=== PATIENT | male | born 1960 | race Caucasian/White ===

== ENCOUNTER → 2021-08-07 10:27 | Outpatient (BNVA) | payer OTHER, SELFPAY | PROVIDERS: Family Provider Nurse Practitioner; PCP Nurse Practitioner; Visit Provider Surgery | DX: Z12.11 Encounter for screening for malignant neoplasm of colon (principal) | CPT/HCPCS: 99202 ==

== ENCOUNTER → 2021-08-19 14:25 | Outpatient (BNVA) | payer OTHER, SELFPAY | PROVIDERS: Family Provider Nurse Practitioner; PCP Nurse Practitioner; Visit Provider Surgery | DX: R22.1 Localized swelling, mass and lump, neck (principal) | CPT/HCPCS: 88307; 99213 ==

== ENCOUNTER → 2021-08-28 15:39 | Outpatient (BNVA) | payer OTHER, SELFPAY | PROVIDERS: Family Provider Nurse Practitioner; PCP Nurse Practitioner; Visit Provider Surgery | DX: Z98.890 Other specified postprocedural states (principal) | CPT/HCPCS: 99024 ==

== ENCOUNTER 2021-09-01 07:43 | Outpatient (CLI) | payer OTHER, SELFPAY ==
--- NOTE | 2021-09-01 07:54 | USCV_ITS ---
Serafin Roberts Age: 60 Gender: M : 1960 Exam Date: 09/01/2021 08:05 Ordering Phys: Maribell Bowling Technologist: MARITZA [place] [facility] [place] aaa HISTORY: Diameter (cm) AP x Transverse x Length Velocity (cm/s) Waveform Prox Aorta: 2.26 x 3.01 x 66.10 Biphasic Mid Aorta: 2.42 x 2.55 x 56.40 Biphasic Distal Aorta: 2.71 x 2.80 x 38.30 Biphasic Right Iliac Prox: 1.62 x 1.90 x 51.20 Biphasic Left Iliac Prox: 1.62 x 1.40 x 67.80 Biphasic Stent Prox Landing x x Aneurysmal Sac Max x x Lt Lat Sac Dim Rt Lat Sac Dim Stent Dist Landing x x Right Iliac Stent x x Left Iliac Stent x x Right Renal Art Left Renal Art FINDINGS: Comparison: none available. No evidence of abdominal aortic aneurysm. Ectatic abdominal aorta with evidence of atherosclerotic plaque noted. There is evidence of atherosclerotic plaque no significan stenosis in the right common iliac artery. There is evidence of atherosclerotic plaque no significan stenosis in the left common iliac artery. CONCLUSIONS No evidence of abdominal aortic aneurysm. Dr. Gina Hurtado DO (Electronically Signed) Final Date: 01 September 2021 13:18 S
== END 2021-09-01 07:44 | disposition home or self-care (01) ==
LOC: RAD 07:44
PROVIDERS: PCP Nurse Practitioner; Visit Provider Nurse Practitioner
DX: I77.811 Abdominal aortic ectasia (principal); I70.0 Atherosclerosis of aorta; Z86.79 Personal history of other diseases of the circulatory system
CPT/HCPCS: 93978

== ENCOUNTER → 2021-09-22 14:41 | Outpatient (BNVA) | payer OTHER, SELFPAY | PROVIDERS: PCP Nurse Practitioner; Visit Provider Surgery | DX: L72.0 Epidermal cyst (principal) | CPT/HCPCS: 99212 ==

== ENCOUNTER 2021-10-14 07:08 | Day surgery (SDC) | payer OTHER, SELFPAY ==
[2021-10-12 13:29] VITALS: BMI 32.8
[2021-10-14 07:17] VITALS: BP 180/92; PULSE 57; RESP 18; TEMP 36.4; O2SAT 98
--- NOTE | 2021-10-14 07:23 | W.PM.OPSUD ---
Surgery/Procedure H&P Update DATE OF PROCEDURE: October 14, 2021 DATE H&P PERFORMED: 09/22/21 PLANNED PROCEDURE: Operation Date: 10/14/21 08:30 Proposed Procedures p Colonoscopy 40988,Z12.11(Not Applicable) - Hernando Murray DO
[2021-10-14] MEDS: sodium chloride 0.9% 1,000 ML 30 ML IV (07:30)
--- NOTE | 2021-10-14 08:31 | ANES.PREANE2 ---
Pre-Anesthetic Assessment Height/Weight: Height 1.93 m Weight 122.47 kg Temp Pulse Resp BP Pulse Ox O2 Del Method 97.5 F L 57 L 18 180/92 98 10/14/21 07:17 10/14/21 07:17 10/14/21 07:17 10/14/21 07:17 10/14/21 07:17 10/14/21 07:17 Preop Diagnosis: Screening Operation Date: 10/14/21 08:30 Proposed Procedures p Colonoscopy 28134,Z12.11(Not Applicable) - Hernando Murray DO Familial anesthetic complications: None Was Beta Rishi taken within 24 hours: Yes Was Clonidine taken within 24 hours: N/A Last intake: Intake Last Liquid Date 10/13/21 Last Liquid Time 18:30 Last Solid Date 10/13/21 Last Solid Time 05:30 Social Tobacco 1 pack(s) per day 45 pack years Exam alert, oriented x 3, clear to auscultation bilaterally and regular rate & rhythm Airway Submandibular: within normal limits Cervical ROM: within normal limits Mallampati: Class II Dentition: full History/ROS No significant history except as noted and No significant complaints Pulmonary None reported CV/HEM Hypertension and Myocardial Infarction (6 stents placed one year ago) None reported Hepatic None reported GI Gastroesophageal Reflux Disease None this AM. Food specific Metabolic None reported Musc/skel None reported Neuropsych None reported Anesthetic Plan ASA status: 2 Anesthesia: Anesthesia Evaluation, General and MAC Risk of > 500 ml blood loss (7ml/kg in children): No Medications/Allergies Home Medications Medication Instructions Recorded Confirmed Last Taken Type aspirin 81 mg tablet,delayed 81 mg PO DAILY 08/07/21 10/12/21 10/11/21 History release atorvastatin 40 mg tablet 40 mg PO DAILY 08/07/21 10/12/21 10/13/21 History carvedilol 3.125 mg tablet 3.125 mg PO BID 08/07/21 10/14/21 10/14/21 05:30 History clopidogrel 75 mg tablet (Plavix) 75 mg PO DAILY 08/07/21 10/12/21 10/08/21 History losartan 50 mg tablet 50 mg PO DAILY 08/07/21 10/12/21 10/13/21 History bupropion HCl 100 mg tablet 100 mg PO DAILY 10/12/21 10/12/21 10/13/21 History Allergies Allergy/AdvReac Type Severity Reaction Status Date / Time No Known Allergies Allergy Verified 09/22/21 13:10 Current Medications Generic Name Dose Route Start Last Admin Trade Name Freq PRN Reason Stop Dose Admin Sodium Chloride 1,000 mls @ 30 mls/hr 10/14/21 07:30 10/14/21 07:30 Sodium Chloride 0.9% IV 10/15/21 07:29 30 mls/hr .Q24H ENOCH Administration PFSH Anesthesia Medical History History of heart attack 2020 Hypertension Surgical History Hx of heart artery stent 6 total 2020 Family History Mother Cancer pancreatic Social History Smoking and tobacco status: current every day smoker Data Anesthesia Cardiac Studies: No Data to Display
[2021-10-14 09:47] VITALS: BP 146/93; PULSE 80; RESP 18; TEMP 36.4; O2SAT 95
[2021-10-14 09:56] VITALS: BP 144/97; PULSE 77; RESP 18; TEMP 36.4; O2SAT 94
--- NOTE | 2021-10-14 13:09 | ANE.PACU2 ---
Inpatient post-anesthesia follow up: Airway intact: Yes Vital signs: Temperature 97.6 F Pulse Rate 77 Respiratory Rate 18 Blood Pressure 144/97 Pulse Oximetry 94 Oxygen Delivery Me thod Room Air Oxygen Flow Rate Fraction of Inspir ed Oxygen Hydration adequate: Yes Nausea and vomiting: No Pain level: 1 Mental status: Baseline
== END 2021-10-14 10:21 | disposition home or self-care (01) ==
PROVIDERS: PCP Nurse Practitioner; Visit Provider Surgery
PROC: 0DJD8ZZ Inspection of Lower Intestinal Tract, Via Natural or Artificial Opening Endoscopic (ICD-10-PCS; CPT 45378; principal; 2021-10-14 08:30)
DX: Z12.11 Encounter for screening for malignant neoplasm of colon (principal); K57.30 Diverticulosis of large intestine without perforation or abscess without bleeding; F17.210 Nicotine dependence, cigarettes, uncomplicated; I10 Essential (primary) hypertension; I25.2 Old myocardial infarction; Z95.5 Presence of coronary angioplasty implant and graft; K21.9 Gastro-esophageal reflux disease without esophagitis; Z79.82 Long term (current) use of aspirin
CPT/HCPCS: 45378; J2704; J3490; J7030

== ENCOUNTER → 2022-10-11 15:22 | Outpatient (BNVA) | payer OTHER, SELFPAY | PROVIDERS: PCP Nurse Practitioner; Referring Provider Family Medicine; Visit Provider Dermatology | DX: D48.5 Neoplasm of uncertain behavior of skin; L81.4 Other melanin hyperpigmentation; D22.5 Melanocytic nevi of trunk; L57.0 Actinic keratosis; L81.3 Cafe au lait spots; F17.210 Nicotine dependence, cigarettes, uncomplicated | CPT/HCPCS: 11102; 17000; 99203 ==

== ENCOUNTER 2024-06-15 07:41 | Outpatient (CLI) | payer OTHER, SELFPAY ==
--- NOTE | 2024-06-15 07:43 | US_ITS ---
WS: [id number] RIGHT UPPER QUADRANT ULTRASOUND HISTORY: ELEVATED LIVER ENZYMES COMPARISON: None available. Liver: 19.2 cm in length. Enlarged heterogeneous liver. The liver is very difficult to visualize. Coarse echotexture suggesting hepatic steatosis. Nodular surface suggesting cirrhosis. Portal Vein: Poorly visualized. Gallbladder: Normally distended gallbladder with no stones or wall thickening. CBD: 0.5 cm Pancreas: Not visualized. Right kidney: 12.8 cm in length. Normal size and echogenicity. No hydronephrosis or mass. Aorta and IVC: Aorta appears ectatic and mildly dilated to 4.0 cm. No ascites. US/US abdomen limited 94902 IMPRESSION: 1. Technically very limited and difficult evaluation of the RIGHT upper quadra nt due to body habitus. 2. No cholelithiasis. 3. Enlarged heterogeneous liver. Poorly visualized liver. Suspect cirrhosis an d hepatic steatosis. 4. Dilated abdominal aorta. Recommend follow-up CT angiogram aorta as aneurysm is suspected.
== END 2024-06-15 07:42 | disposition home or self-care (01) ==
PROVIDERS: PCP Nurse Practitioner; Visit Provider Nurse Practitioner
DX: Z01.89 Encounter for other specified special examinations (principal); R16.0 Hepatomegaly, not elsewhere classified; R93.2 Abnormal findings on diagnostic imaging of liver and biliary tract; I77.811 Abdominal aortic ectasia
CPT/HCPCS: 76705

== ENCOUNTER 2024-07-31 08:30 | Outpatient (CLI) | payer OTHER, SELFPAY ==
--- NOTE | 2024-07-31 08:35 | CTR_ITS ---
PROCEDURE INFORMATION: Exam: CTA Abdominal Aorta and Bilateral Lower Extremities (Run-off) With Contrast Exam date and time: 07/31/2024 9:31 AM Age: 63 years old Clinical indication: Abnormal findings; Abnormal diagnostic imaging exam; Exam and body structure: US abdomen limited; Aaa follow up TECHNIQUE: Imaging protocol: Computed tomographic angiography of the of the abdominal aorta, pelvis and bilateral lower extremities with contrast. 3D rendering (Not supervised by radiologist): MIP and/or 3D reconstructed images were created by the technologist. Radiation optimization: All CT scans at this facility use at least one of these dose optimization techniques: automated exposure control; mA and/or kV adjustment per patient size (includes targeted exams where dose is matched to clinical indication); or iterative reconstruction. Contrast material: OMNIPAQUE 350; Contrast volume: 125 ml; Contrast route: INTRAVENOUS (IV); COMPARISON: US abdomen limited [id number] 06/15/2024 7:49 AM RADIATION DOSE METRICS: Total DLP (mGy-cm): 2056.86 FINDINGS: Aorta: There is a stable infrarenal abdominal aortic aneurysm measuring about 3.9 cm in greatest transverse dimension on axial imaging. Celiac trunk and mesenteric arteries: No occlusion or significant stenosis. Renal arteries: No occlusion or significant stenosis. Right iliac arteries: No occlusion or significant stenosis. There is mild aneurysmal dilatation of the right common iliac artery measuring 2.1 cm. Right femoral/popliteal arteries: There are calcified atherosclerotic plaques in the distal right femoral artery and right popliteal artery but no hemodynamically significant stenosis. Right infrapopliteal arteries: There are tibial artery calcifications and three-vessel runoff to the right ankle. The right dorsalis pedis artery is diffusely small caliber. Left iliac arteries: No occlusion or significant stenosis. Left femoral/popliteal arteries: There are calcified atherosclerotic plaques in the distal left femoral artery and left popliteal artery but no hemodynamically significant stenosis. Left infrapopliteal arteries: There are tibial artery calcifications and three-vessel runoff to the left ankle. The left dorsalis pedis artery is small caliber but patent. Heart: The heart is normal in size. No pericardial effusion. There is calcified coronary artery disease. Liver: Hepatic steatosis. No focal liver lesion identified. Gallbladder and biliary ducts: The gallbladder is unremarkable with no calcified stones visualized and no strandy inflammatory changes surrounding the gallbladder. Pancreas: The pancreas is normal in appearance. No evidence of pancreatic ductal dilatation. Spleen: The spleen is normal in appearance. Adrenal glands: The adrenal glands are normal in appearance. Kidneys and ureters: The kidneys are normal in appearance. There are simple small bilateral renal cortical cysts with the largest in the left kidney measuring about 1.8 cm. No evidence of hydronephrosis or hydroureter. There is a 3 mm nonobstructing calculus in a lower pole calyx of the left kidney. Stomach and bowel: The small bowel loops are not thickened and are nondilated. There is colonic diverticulosis but no evidence of diverticulitis. Appendix: The appendix is normal in appearance. No evidence of appendicitis. Urinary bladder: The urinary bladder is normal in appearance. Reproductive: Unremarkable as visualized. Intraperitoneal space: Unremarkable. No free air. No significant fluid collection. Lymph nodes: No lymphadenopathy. Bones/joints: No acute osseous lesions. Mild chronic degenerative changes in the visualized spine. Soft tissues: Small fat containing left inguinal hernia. Small fat containing periumbilical hernia. CT/CT angio abd aorta runof [id number] IMPRESSION: 1. Stable appearing infrarenal abdominal aortic aneurysm measuring about 3.9 cm in greatest transverse dimension. 2. 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 3. Hepatic steatosis. 4. Colonic diverticulosis but no evidence of diverticulitis. 5. No hemodynamically significant arterial stenoses in the bilateral lower extremity arteries. 6. Extensive calcified coronary artery disease.
[2024-07-31] MEDS: iohexol 350 mg/mL 500 mL Btl (per mL) IV (09:46)
== END 2024-07-31 08:31 | disposition home or self-care (01) ==
PROVIDERS: PCP Nurse Practitioner; Visit Provider Nurse Practitioner
DX: Z01.89 Encounter for other specified special examinations (principal); I71.43 Infrarenal abdominal aortic aneurysm, without rupture; I72.8 Aneurysm of other specified arteries; K76.0 Fatty (change of) liver, not elsewhere classified; K57.30 Diverticulosis of large intestine without perforation or abscess without bleeding; I25.10 Atherosclerotic heart disease of native coronary artery without angina pectoris; I70.202 Unspecified atherosclerosis of native arteries of extremities, left leg; I70.291 Other atherosclerosis of native arteries of extremities, right leg; N28.1 Cyst of kidney, acquired; N20.0 Calculus of kidney; M47.9 Spondylosis, unspecified; K40.90 Unilateral inguinal hernia, without obstruction or gangrene, not specified as recurrent; K42.9 Umbilical hernia without obstruction or gangrene
CPT/HCPCS: 75635